=== PATIENT | female | born 1960 | race Two or more races ===

== ENCOUNTER 2017-12-12 08:54 | Outpatient (CLI) | payer OTHER | END 2017-12-12 09:01 | disposition home or self-care (01) | LOC: LAB 08:54 | DX: I11.9 Hypertensive heart disease without heart failure (principal); E78.2 Mixed hyperlipidemia; I10 Essential (primary) hypertension ==

== ENCOUNTER 2018-01-20 09:58 | Outpatient (CLI) | payer OTHER | END 2018-01-20 10:04 | disposition home or self-care (01) | LOC: LAB 09:58 | DX: E78.2 Mixed hyperlipidemia (principal) ==

== ENCOUNTER 2019-09-20 10:31 | Outpatient (CLI) | payer OTHER | END 2019-09-20 10:39 | disposition home or self-care (01) | LOC: LAB 10:31 | DX: E78.00 Pure hypercholesterolemia, unspecified (principal); I11.9 Hypertensive heart disease without heart failure ==

== ENCOUNTER 2020-06-09 11:55 | Emergency (ER) | payer OTHER ==
[~2020-06-09] VITALS: Ht 157.5 cm; Wt 72.6 kg
[2020-06-09] MEDS ORDERED: ENALAPRIL MALE2.5 MG (12:45)
== END 2020-06-09 14:22 | disposition home or self-care (01) ==
LOC: ER 11:55
DX: H00.035 Abscess of left lower eyelid (principal)

== ENCOUNTER 2022-05-13 15:57 | Emergency (ER) | payer OTHER ==
[~2022-05-13] VITALS: Ht 157.5 cm; Wt 70.3 kg
[~2022-05-13 15:57] MED LIST: ENALAPRIL MALE2.5 MG
[2022-05-13] MEDS ORDERED: ROSUVASTATIN CA20 MG PO (16:26)
[2022-05-13] MEDS ORDERED: MEDROLPACK PO (20:14)
[2022-05-13] MEDS ORDERED: FLONASE ALLERG9.9 ML NASAL (20:15)
== END 2022-05-13 20:33 | disposition home or self-care (01) ==
LOC: ER 15:57
DX: U07.1 COVID-19 (principal)